=== PATIENT | male | born 1985 | race Two or more races ===

== ENCOUNTER 2020-01-08 11:19 | Emergency (ER) | payer OTHER, SELFPAY ==
[2020-01-08 11:37] VITALS: BP 138/88; PULSE 70; RESP 16; TEMP 36.8; O2SAT 98; BMI 32.2
--- NOTE | 2020-01-08 12:42 | PC.NURSE ---
pt is very upset that he needs to wait to be seen.
== END 2020-01-08 12:37 | disposition left against medical advice (07) ==
PROVIDERS: Emergency Provider Internal Medicine
DX: Z20.828 Contact with and (suspected) exposure to other viral communicable diseases (principal)
CPT/HCPCS: 99282

== ENCOUNTER 2020-01-09 10:04 | Emergency (ER) | payer MEDICAID, OTHER, SELFPAY ==
[2020-01-09 10:16] VITALS: BMI 31.5
[2020-01-09 10:20] VITALS: BP 128/86; PULSE 70; RESP 18; TEMP 36.8
--- NOTE | 2020-01-09 10:38 | ED_ITS ---
HPI - Fever General Chief Complaint: Fever Stated Complaint: covid symptoms Time Seen by Provider: 01/09/20 10:16 Source: patient Mode of arrival: ambulatory Limitations: language barrier History of Present Illness HPI Narrative: 34 y/o male presenting with his daughter with subjective fevers yesterday. He wants to be sure he does not have COVID. He came here yesterday for evaluation but left prior to be seen. He went to work last evening. He comes back now for COVID-19 testing. He reports no further subjective fevers, reports mild headache this morning. MD elicited complaint: fever Onset (ago): day(s) (1) Context: other(s) with similar symptoms Exacerbating factors: nothing Relieving factors: nothing Associated symptoms: headache Treatments prior to arrival fever: none Related Data Allergies Allergy/AdvReac Type Severity Reaction Status Date / Time No Known Allergies Allergy Verified 01/09/20 10:32 Review of Systems Review of Systems: Constitutional: N+Fever, No Chills ENT/Mouth: No sore throat, No Rhinorrhea Eyes: No Eye Pain, No Swelling, No Redness Cardiovascular: No Chest Pain, No SOB Respiratory: No Cough, No Sputum Gastrointestinal: No Nausea, No Vomiting, No Diarrhea, No abdominal Pain Genitourinary: No Dysuria Musculoskeletal: No joint pain, + Myalgias Skin: No Skin Lesions, No rash Neuro: + Headache Heme/Lymph: No Bruising, No Lymphadenopathy PMFSH Past Medical History Attestation statement: The following information was validated with the patient. Medical History (Updated 01/09/20 @ 10:40 by LIVIER Regan) No known health problems Social History Social History Advance Directives: No Advance Directives Information Provided: No Physical Exam Vital Signs: Vital Signs: Last Vital Signs Temp 98.2 F 01/09/20 10:20 Pulse 70 01/09/20 10:20 Resp 18 01/09/20 10:20 BP 128/86 01/09/20 10:20 Body Mass Index 31.5 Appearance: Alert. Oriented X3. No acute distress. ENT: Pharynx normal. Neck: Normal inspection. Neck supple. CVS: Normal heart rate and rhythm. Pulses normal. Respiratory: No respiratory distress. Breath sounds normal. Abdomen: Soft and nontender. +BS x4 Skin: Skin warm and dry. Normal skin color. Normal skin turgor. No rashes. Neuro: Oriented X 3. Non-focal Course Course Course Narrative: 34 yo male presenting with subjective fever >24 hours ago and mild headache. Vitals are normal and he appears well. COVID test sent. Patient counseled on how he should not work while he has a pending COVID-19 test. He expressed understanding. Stable for discharge. Critical Care Time Critical Care Time Critical Care Time: No Discharge Plan Discharge Clinical Impression: Viral infection Patient Disposition: Home, Self-Care Instructions: Viral Syndrome (ED), COVID-19 (Coronavirus Disease 2019) (ED) Additional Instructions: You were tested for COVID-19 today. We will call you with the results in 2-6 days. Take Motrin and/or Tylenol as needed for fevers and body aches. Do not go to work while you have a pending COVID test. Stand Alone Forms: Work/School Release Interventions: ED Discharge Assessment Last Done: 01/09/20 10:55 Discharge Date/Time: 01/09/20 10:55 Print Language: Salvadorean
== END 2020-01-09 10:55 | disposition home or self-care (01) ==
PROVIDERS: Physician Assistant; Emergency Provider Internal Medicine
DX: B34.9 Viral infection, unspecified (principal); R05 Cough; R50.9 Fever, unspecified; Z20.828 Contact with and (suspected) exposure to other viral communicable diseases
CPT/HCPCS: 99283; U0003